=== PATIENT | male | born 1995 | race Two or more races ===

== ENCOUNTER 2022-02-17 12:43 | Emergency (ER) | payer OTHER ==
[~2022-02-17] VITALS: Ht 160 cm; Wt 54.4 kg
[2022-02-17] MEDS ORDERED: LIDOCAINE HCL/MPF 1% 30 ML VIAL IJ ONE (12:54)
[2022-02-17] MEDS ORDERED: TDAP [DIPH/PERTUSSIS/TET] 0.5 ML VIAL IM ONE ×2 (12:58→13:00)
[2022-02-17] MEDS ORDERED: LIDOCAINE HCL/PF 1% 30 ML VIAL TP ONE (13:00)
--- NOTE | 2022-02-17 13:30 | NUR ---
AT BEDSIDE FOR LAC REPAIR
[2022-02-17 15:40] VITALS: BP 128/81
--- NOTE | 2022-02-17 15:41 | NUR ---
Patient discharged to home in stable condition. Written and verbal after care instructions given. Patient verbalizes understanding of instruction.
== END 2022-02-17 15:41 | disposition home or self-care (01) ==
LOC: ER 12:48
DX: S61.411A Laceration without foreign body of right hand, initial encounter (principal); W26.8XXA Contact with other sharp object(s), not elsewhere classified, initial encounter; Y93.89 Activity, other specified; Y92.89 Other specified places as the place of occurrence of the external cause; Y99.8 Other external cause status
CPT/HCPCS: 99283; 12002; 90471; 90715; J3490 ×2; A6403